=== PATIENT | female | born 1960 ===

== ENCOUNTER 2017-05-27 12:26 | Inpatient (IN) | payer BC ==
--- NOTE | 2017-05-27 13:05 | ED PDOC ---
HPI: Psych/Substance Abuse Time Seen by Provider: 05/27/17 12:40 Chief Complaint (Nursing): Psychiatric Evaluation Chief Complaint (Provider): Psychiatric Evaluation History Per: Patient History/Exam Limitations: no limitations Additional Complaint(s): Crystal Darden is a 56 year old female that was brought to ED via EMS after her family was concerned and called 911. Patient is recently from of 35 years and she has been extremely upset. Their anniversary is tomorrow, and her family is worried for her, but patient states that she wants her family to "leave her alone" so she can deal with recent change in life. She reports that she has an appointment scheduled on 06/05 with a therapist, states that she has never been on any antidepressants and has never has any suicidal attempts or thoughts or homicidal ideation. Past Medical History Reviewed: Historical Data, Nursing Documentation, Vital Signs Vital Signs: Last Vital Signs Temp 98.1 F 05/27/17 12:28 Pulse 140 H 05/27/17 12:28 Resp 16 05/27/17 12:28 BP 143/96 H 05/27/17 12:28 Pulse Ox 98 05/27/17 12:28 - Medical History PMH: Diabetes (takes insulin) Other PMH: hx of stage 2 lung cancer, now in remission - Family History Family History: States: Unknown Family Hx - Allergies Allergies/Adverse Reactions: Allergies Allergy/AdvReac Type Severity Reaction Status Date / Time naproxen Allergy ANAPHYLAXIS Verified 05/27/17 12:29 Review of Systems Psych: Negative for: Suicidal ideation (denies suicidal ideation or homicidal ideation ) Physical Exam - Reviewed Nursing Documentation Reviewed: Yes Vital Signs Reviewed: Yes - Physical Exam Appears: Positive for: Non-toxic, No Acute Distress Head Exam: Positive for: ATRAUMATIC, NORMOCEPHALIC Skin: Positive for: Normal Color, Warm Eye Exam: Positive for: EOMI, Normal appearance, PERRL Cardiovascular/Chest: Positive for: Regular Rate, Rhythm. Negative for: Murmur Respiratory: Positive for: Normal Breath Sounds. Negative for: Wheezing Gastrointestinal/Abdominal: Positive for: Normal Exam, Soft. Negative for: Tenderness Extremity: Positive for: Normal ROM. Negative for: Tenderness, Swelling Neurologic/Psych: Positive for: Alert, Oriented. Negative for: Motor/Sensory Deficits - Laboratory Results Result Diagrams: 05/27/17 14:30 10/15/17 14:30 - ECG O2 Sat by Pulse Oximetry: 98 (RA) Pulse Ox Interpretation: Normal - Progress ED Course And Treament: PATIENT AGITATED IN ED. ATIVAN 1 MG IM X 1 DOSE EKG: SINUS TACHYCARDIA 118BPM. NO ECTOPY; NO ACUTE CHANGES POTASSIUM NOTED 3.4 KDUR 40 MEQ X 1 DOSE NS 1 LITER WIDE OPEN UTI NOTED. CIPRO 500MG X 1 DOSE ORDERED. CXR: NAD REPEAT HEART RATE 110. PATIENT UPSET HER PHONE IS NOT ACCESSIBLE AND IS LOCKED UP. CLEARED MEDICALLY FOR PSYCHIATRIC EVALUATION AND HOSPITALIZATION Medical Decision Making Medical Decision Making: Impression: Depression Plan: * Psychiatric Evaluation * Reevaluation 14:15 Patient was evaluated by crisis, determined to need psychiatric admission. Patient voluntarily signed for admission. Scribe Attestation: Documented by Angle Swift, acting as a scribe for Usman Stanford PA-C. Provider Scribe Attestation: All medical record entries made by the Scribe were at my direction and personally dictated by me. I have reviewed the chart and agree that the record accurately reflects my personal performance of the history, physical exam, medical decision making, and the department course for this patient. I have also personally directed, reviewed, and agree with the discharge instructions and disposition. Disposition - Clinical Impression Clinical Impression: Depression, UTI (urinary tract infection) - Patient ED Disposition Is Patient to be Admitted: Yes - Disposition Disposition Time: 19:49 Condition: FAIR - Pt Status Changed To: Hospital Disposition Of: Inpatient - Admit Certification Admit to Inpatient:: After my assessment, the patient will require hospitalization for at least two midnights. This is because of the severity of symptoms shown, intensity of services needed, and/or the medical risk in this patient being treated as an outpatient.
[2017-05-27 15:15] LABS: BASO % 0.3 % (0.0-2.0); EOS # 0.1 K/uL (0.0-0.7); EOS % 0.6 % (0.0-4.0); LYMPH # 2.4 K/uL (1.0-4.3); LYMPH % 24.6 % (20.0-40.0); MEAN CELL VOLUME 88.4 fl (81.0-99.0); MEAN CORPUSCULAR HEMOGLOBIN 29.9 pg (27.0-31.0); MEAN CORPUSCULAR HGB CONC 33.8 g/dL (33.0-37.0); MONO # 0.5 K/uL (0.0-0.8); MONO % 5.4 % (0.0-10.0); NEUT # 6.7 K/uL (1.8-7.0); NEUT % 69.1 % (50.0-75.0); NRBC % 0.2 % (0.0-0.0); RED CELL DISTRIBUTION WIDTH 12.8 % (11.5-14.5); WHITE BLOOD COUNT 9.7 K/uL (4.8-10.8)
[2017-05-27 15:25] LABS: ALB/GLOB RATIO 1.5 (1.0-2.1); ALCOHOL SERUM 65 mg/dl (0-10); ALKALINE PHOSPHATASE 84 U/L (38-126); ALT/SGPT 42 U/L (9-52); AST/SGOT 21 U/L (14-36); BILIRUBIN,TOTAL 0.3 mg/dl (0.2-1.3); BLOOD UREA NITROGEN 15 mg/dl (7-17); CALCIUM 9.6 mg/dL (8.4-10.2); CARBON DIOXIDE 18 mmol/L (22-30); CHLORIDE 104 mmol/L (98-107); GFR AFRICAN-AMERICAN > 60; GLUCOSE,RANDOM 260 mg/dL (65-105); POTASSIUM 3.4 MMOL/L (3.6-5.0); SODIUM 142 mmol/l (132-148); TOTAL PROTEIN 7.7 G/DL (6.3-8.2)
[2017-05-27] MEDS ORDERED: Sodium Chloride 0.9% 1,000 ML IV STA ×2 (17:09→17:13)
[2017-05-27] MEDS ORDERED: Potassium Chloride 20 mEq ER Tab PO STA (17:13)
[2017-05-27] MEDS ORDERED: Potassium Chloride 20 mEq ER Tab PO ONE (17:17)
[2017-05-27 19:20] LABS: RBC URINE 8 /hpf (0-3); URINE BACTERIA RARE (<OCC); URINE BILIRUBIN NEGATIVE (NEGATIVE); URINE BLOOD NEGATIVE (NEGATIVE); URINE COLOR YELLOW (YELLOW); URINE GLUCOSE (UA) >=500 mg/dL (Normal); URINE KETONE TRACE mg/dL (NEGATIVE); URINE LEUKOCYTE ESTERASE MOD Leu/uL (Negative); URINE PROTEIN 100 mg/dL (NEGATIVE); URINE UROBILINOGEN 0.2-1.0 mg/dL (0.2-1.0); WBC URINE 18 /hpf (0-5)
[2017-05-27 19:47] VITALS: O2SAT 98
[2017-05-27] MEDS ORDERED: Magnesium Hydroxide Susp 30 ml UD PO PRN (21:25)
[2017-05-27] MEDS ORDERED: Alum-Mag Hydrox-Simethicone Susp (30 mL) PO PRN (21:25)
[2017-05-27] MEDS ORDERED: DiphenhydrAMINE 50 mg/ml Inj IM PRN (21:25)
--- NOTE | 2017-05-27 21:48 | PCM.BM ---
Treatment Plan Problems - Problems identified on initial assessmt Hopelessnss/Helplessness Date Initiated: 05/27/17 Time Initiated: 21:46 Assessment reference: NA Status: Active Feelings of Worthlessness Date Initiated: 05/27/17 Time Initiated: 21:47 Assessment reference: NA Status: Active Treatment assets and liabiliti Patient Assests: cooperative, ADL independent, good support system, negotiates basic needs Patient Liabilities: relationship conflicts - Milieu Protocol Maintain good personal hygiene: daily Encourage regular showers, every shift Remind patient to perform daily oral care Conduct patient checks and document Observation sheet: Q15 minutes Maintain personal safety: every shift Educate patient to report safety concerns to staff, every shift Monitor environment for contraband/sharps Medication safety: Monitor for expected outcome, potential side effects: every shift, Assess barriers to learning: every shift, Assess readiness for medication education: daily
[2017-05-28 07:01] LABS: BLOOD UREA NITROGEN 14 mg/dl (7-17); CARBON DIOXIDE 27 mmol/L (22-30); CHLORIDE 105 mmol/L (98-107); CHOLESTEROL 231 mg/dL (0-199); GFR AFRICAN-AMERICAN > 60; GLUCOSE,RANDOM 224 mg/dL (65-105); POTASSIUM 4.1 MMOL/L (3.6-5.0); SODIUM 142 mmol/l (132-148)
[2017-05-28 07:05] LABS: T4 9.22 ug/dl (5.5-11.0)
[2017-05-28 07:18] LABS: THYROID STIMULATING HORMONE 0.68 mIU/ML (0.46-4.68)
--- NOTE | 2017-05-28 07:32 | RAD ---
PROCEDURE: CHEST RADIOGRAPH, 1 VIEW HISTORY: ROUTINE COMPARISON: None available. FINDINGS: LUNGS: No acute infiltrate is identified bilaterally. Left hemidiaphragm appears elevated, etiology indeterminate. PLEURA: No pneumothorax or pleural fluid seen. CARDIOVASCULAR: Normal. OSSEOUS STRUCTURES: No significant abnormalities. VISUALIZED UPPER ABDOMEN: Normal. OTHER FINDINGS: None. IMPRESSION: Elevated left hemidiaphragm from an indeterminate etiology. No acute infiltrate pleural effusion or pneumothorax identified. Cardiac size appears normal.
[2017-05-28] MEDS: Insulin Lispro (humaLOG) 100 Units/ml Inj SC SCH ×4 (08:57→21:08)
[2017-05-28] MEDS ORDERED: Pneumococcal 23-Valent Vaccine IM ONE (09:00)
[2017-05-28 09:49] VITALS: RESP 18
--- NOTE | 2017-05-28 10:07 | CP.PCM.CON ---
<Tanya Mcfarland - Last Filed: 05/28/17 12:49> History of Present Illness - History of Present Illness History of Present Illness: 57 y/o female with PMHx of DM type II seen at bedside in psych unit after consult for medical evaluation. Pt states she was admitted to the hospital after her daughter was concerned that she might hurt herself. Pt states her recently left her so she has been sad but does not describe herself as depressed. Pt denies any history of depression and denies having suicidal or homicidal ideations. Pt states she occasionally experiences a shooting pain down her right leg, and was previously treated with Lyrica. However, pt states she was experiencing hallucinations while on Lyrica and the medication was discontinued by her doctor. Pt admits to taking Novolog TID. Pt states she did experience a mild fever and chills approx 2-3 days ago. Pt denies N/V/D/CP/SOB. PSH: tonsillectomy, ganglion cyst removal R arm, lung surgery, breast enhancement surgery, abdominal surgery ALL: Naproxen Social: "social" cigarette smoker, stress related. denies EtOH or illicit drug use. Family: currently lives alone as left her 3 weeks ago Review of Systems - Review of Systems All systems: reviewed and no additional remarkable complaints except (per HPI) Past Patient History - Infectious Disease Hx of Infectious Diseases: None - Past Social History Smoking Status: Light Smoker < 10 Cigarettes Daily - CARDIAC Hx Cardiac Disorders: No - PULMONARY Hx Lung Cancer: Yes (w/ Chemo in 2010) - NEUROLOGICAL HX Cerebrovascular Accident: No Hx Seizures: No - HEENT Hx HEENT Problems: No - RENAL Hx Chronic Kidney Disease: No - ENDOCRINE/METABOLIC Hx Diabetes Mellitus Type 2: Yes - HEMATOLOGICAL/ONCOLOGICAL Hx Blood Disorders: Yes Hx Cancer: Yes (PT HAD STAGE 2 LUNG CANCER) Hx Human Immunodeficiency Virus (HIV): No - INTEGUMENTARY Hx Dermatological Problems: No - MUSCULOSKELETAL/RHEUMATOLOGICAL Hx Musculoskeletal Disorders: No - GASTROINTESTINAL Hx Gastrointestinal Disorders: No - GENITOURINARY/GYNECOLOGICAL Hx Sexually Transmitted Disorders: No - PSYCHIATRIC Hx Substance Use: No (unknown) - SURGICAL HISTORY Hx Tonsillectomy: Yes Other/Comment: Lung Sx 2010. R lymph node Sx 2006. Julio Sanchez 2006. Breast Lift 2006 - ANESTHESIA Hx Anesthesia: Yes Hx Anesthesia Reactions: No Hx Malignant Hyperthermia: No Has any member of the family had a problem w/ anesthesia?: No Meds Allergies/Adverse Reactions: Allergies Allergy/AdvReac Type Severity Reaction Status Date / Time naproxen Allergy ANAPHYLAXIS Verified 05/27/17 12:29 - Medications Medications: Current Medications Acetaminophen (Tylenol 325mg Tab) 650 mg PO Q4 PRN PRN Reason: pain level 4-7 Al Hydrox/Mg Hydrox/Simethicone (Maalox Plus 30 Ml) 30 ml PO Q4 PRN PRN Reason: Dyspepsia Ciprofloxacin (Cipro) 500 mg PO Q12 TARSHA PRN Reason: Protocol Stop: 05/30/17 09:01 Last Admin: 05/28/17 08:55 Dose: 500 mg Diphenhydramine HCl (Benadryl) 50 mg IM Q6 PRN PRN Reason: Extrapyramidal S/S Unable PO Diphenhydramine HCl (Benadryl) 50 mg PO Q6 PRN PRN Reason: Extrapyramidal Symptoms Diphenhydramine HCl (Benadryl) 50 mg PO HS PRN PRN Reason: Sleep Haloperidol (Haldol) 5 mg PO Q4 PRN PRN Reason: Agitation Haloperidol Lactate (Haldol) 5 mg IM Q4 PRN PRN Reason: Agitation, Unable to Take PO Influenza Virus Vaccine (Afluria (Pf)(18yr & Older)) 0.5 ml IM .ONCE ONE Stop: 05/29/17 09:01 Insulin Human Lispro (Humalog) 0 units SC ACHS TARSHA PRN Reason: Protocol Last Admin: 05/28/17 08:57 Dose: 2 units Lorazepam (Ativan) 2 mg IM Q4 PRN PRN Reason: Anxiety/Agitation,Unable PO Lorazepam (Ativan) 2 mg PO Q4 PRN PRN Reason: Anxiety/Agitation Magnesium Hydroxide (Milk Of Magnesia) 30 ml PO HS PRN PRN Reason: Constipation Physical Exam - Constitutional Appears: Well, Non-toxic, No Acute Distress - Head Exam Head Exam: ATRAUMATIC, NORMAL INSPECTION, NORMOCEPHALIC - Eye Exam Eye Exam: EOMI, Normal appearance, PERRL Pupil Exam: NORMAL ACCOMODATION, PERRL - ENT Exam ENT Exam: Mucous Membranes Moist, Normal Exam - Neck Exam Neck exam: Positive for: Full Rom, Normal Inspection Additional comments: non-tender, supple - Respiratory Exam Respiratory Exam: Clear to Auscultation Bilateral, NORMAL BREATHING PATTERN Additional comments: no wheezing, no rales - Cardiovascular Exam Cardiovascular Exam: REGULAR RHYTHM, +S1, +S2 Additional comments: no murmur, no gallop - GI/Abdominal Exam GI & Abdominal Exam: Normal Bowel Sounds, Soft Additional comments: non-tender - Rectal Exam Rectal Exam: Deferred - Extremities Exam Extremities exam: Positive for: normal capillary refill, normal inspection, pedal pulses present - Back Exam Back exam: NORMAL INSPECTION - Neurological Exam Neurological exam: Alert, CN II-XII Intact, Normal Gait, Oriented x3 - Psychiatric Exam Psychiatric exam: Normal Affect, Normal Mood Additional comments: no suicidal or homicidal ideations - Skin Skin Exam: Intact, Normal Color Additional comments: no lesions Results - Vital Signs Recent Vital Signs: Last Vital Signs Temp 97.3 F L 05/28/17 09:00 Pulse 98 H 05/28/17 09:00 Resp 18 05/28/17 09:00 BP 159/73 H 05/28/17 09:00 Pulse Ox 98 05/27/17 19:49 - Labs Result Diagrams: 05/27/17 14:30 05/28/17 06:00 Labs: Laboratory Results - last 24 hr 05/27/17 05/27/17 05/27/17 13:02 14:30 14:30 WBC 9.7 RBC 5.09 Hgb 15.2 Hct 45.0 MCV 88.4 MCH 29.9 MCHC 33.8 RDW 12.8 Plt Count 176 MPV 10.0 Neut % (Auto) 69.1 Lymph % (Auto) 24.6 [place] % (Auto) 5.4 Eos % (Auto) 0.6 Baso % (Auto) 0.3 Neut # 6.7 Lymph # 2.4 [place] # 0.5 Eos # 0.1 Baso # 0.0 Sodium 142 Potassium 3.4 L Chloride 104 Carbon Dioxide 18 L Anion Gap 23 H BUN 15 Creatinine 0.6 L Est GFR ( Amer) > 60 Est GFR (Non-Af Amer) > 60 POC Glucose (mg/dL) 267 H Random Glucose 260 H Calcium 9.6 Total Bilirubin 0.3 AST 21 ALT 42 Alkaline Phosphatase 84 Total Protein 7.7 Albumin 4.6 Globulin 3.1 Albumin/Globulin Ratio 1.5 Triglycerides Cholesterol LDL Cholesterol Direct HDL Cholesterol Thyroxine (T4) TSH 3rd Generation Urine Color Urine Clarity Urine pH Ur Specific [place] Urine Protein Urine Glucose (UA) Urine Ketones Urine Blood Urine Nitrate Urine Bilirubin Urine Urobilinogen Ur Leukocyte Esterase Urine RBC (Auto) Urine Microscopic WBC Ur Squamous Epith Cells Urine Bacteria Hyaline Casts Urine Opiates Screen Urine Methadone Screen Ur Barbiturates Screen Ur Phencyclidine Scrn Ur Amphetamines Screen U Benzodiazepines Scrn U Oth Cocaine Metabols U Cannabinoids Screen Alcohol, Quantitative 65 H 05/27/17 05/27/17 05/27/17 17:53 19:10 19:46 WBC RBC Hgb Hct MCV MCH MCHC RDW Plt Count MPV Neut % (Auto) Lymph % (Auto) [place] % (Auto) Eos % (Auto) Baso % (Auto) Neut # Lymph # [place] # Eos # Baso # Sodium Potassium Chloride Carbon Dioxide Anion Gap BUN Creatinine Est GFR ( Amer) Est GFR (Non-Af Amer) POC Glucose (mg/dL) 194 H Random Glucose Calcium Total Bilirubin AST ALT Alkaline Phosphatase Total Protein Albumin Globulin Albumin/Globulin Ratio Triglycerides Cholesterol LDL Cholesterol Direct HDL Cholesterol Thyroxine (T4) TSH 3rd Generation Urine Color Yellow Urine Clarity Slighty-cloudy Urine pH 5.0 Ur Specific [place] 1.033 H Urine Protein 100 Urine Glucose (UA) >=500 Urine Ketones Trace Urine Blood Negative Urine Nitrate Negative Urine Bilirubin Negative Urine Urobilinogen 0.2-1.0 Ur Leukocyte Esterase Mod Urine RBC (Auto) 8 H Urine Microscopic WBC 18 H Ur Squamous Epith Cells 3 Urine Bacteria Rare Hyaline Casts 0-2 Urine Opiates Screen Negative Urine Methadone Screen Negative Ur Barbiturates Screen Negative Ur Phencyclidine Scrn Negative Ur Amphetamines Screen Negative U Benzodiazepines Scrn Negative U Oth Cocaine Metabols Negative U Cannabinoids Screen Negative Alcohol, Quantitative 05/27/17 05/28/17 05/28/17 22:33 05:22 06:00 WBC RBC Hgb Hct MCV MCH MCHC RDW Plt Count MPV Neut % (Auto) Lymph % (Auto) [place] % (Auto) Eos % (Auto) Baso % (Auto) Neut # Lymph # [place] # Eos # Baso # Sodium 142 Potassium 4.1 Chloride 105 Carbon Dioxide 27 Anion Gap 14 BUN 14 Creatinine 0.6 L Est GFR ( Amer) > 60 Est GFR (Non-Af Amer) > 60 POC Glucose (mg/dL) 261 H 219 H Random Glucose 224 H Calcium 10.0 Total Bilirubin AST ALT Alkaline Phosphatase Total Protein Albumin Globulin Albumin/Globulin Ratio Triglycerides 236 H Cholesterol 231 H LDL Cholesterol Direct 146 H HDL Cholesterol 43 Thyroxine (T4) 9.22 TSH 3rd Generation 0.68 Urine Color Urine Clarity Urine pH Ur Specific [place] Urine Protein Urine Glucose (UA) Urine Ketones Urine Blood Urine Nitrate Urine Bilirubin Urine Urobilinogen Ur Leukocyte Esterase Urine RBC (Auto) Urine Microscopic WBC Ur Squamous Epith Cells Urine Bacteria Hyaline Casts Urine Opiates Screen Urine Methadone Screen Ur Barbiturates Screen Ur Phencyclidine Scrn Ur Amphetamines Screen U Benzodiazepines Scrn U Oth Cocaine Metabols U Cannabinoids Screen Alcohol, Quantitative Assessment & Plan (1) Depression Assessment and Plan: psych to continue medical management Status: Acute (2) UTI (urinary tract infection) Assessment and Plan: Continue Ciprofloxacin WBC currently at 9.7 F/U urine cx Status: Acute <Manav Miranda - Last Filed: 05/28/17 20:09> Meds - Medications Medications: Current Medications Acetaminophen (Tylenol 325mg Tab) 650 mg PO Q4 PRN PRN Reason: pain level 4-7 Al Hydrox/Mg Hydrox/Simethicone (Maalox Plus 30 Ml) 30 ml PO Q4 PRN PRN Reason: Dyspepsia Ciprofloxacin (Cipro) 500 mg PO Q12 TARSHA PRN Reason: Protocol Stop: 05/30/17 09:01 Last Admin: 05/28/17 08:55 Dose: 500 mg Diphenhydramine HCl (Benadryl) 50 mg IM Q6 PRN PRN Reason: Extrapyramidal S/S Unable PO Diphenhydramine HCl (Benadryl) 50 mg PO Q6 PRN PRN Reason: Extrapyramidal Symptoms Diphenhydramine HCl (Benadryl) 50 mg PO HS PRN PRN Reason: Sleep Escitalopram Oxalate (Lexapro) 5 mg PO DAILY COUNTS INCLUDE 234 BEDS AT [facility] Last Admin: 05/28/17 13:05 Dose: 5 mg Haloperidol (Haldol) 5 mg PO Q4 PRN PRN Reason: Agitation Haloperidol Lactate (Haldol) 5 mg IM Q4 PRN PRN Reason: Agitation, Unable to Take PO Influenza Virus Vaccine (Afluria (Pf)(18yr & Older)) 0.5 ml IM .ONCE ONE Stop: 05/29/17 09:01 Insulin Human Lispro (Humalog) 0 units SC ACHS TARSHA PRN Reason: Protocol Last Admin: 05/28/17 17:18 Dose: 2 units Lorazepam (Ativan) 2 mg IM Q4 PRN PRN Reason: Anxiety/Agitation,Unable PO Lorazepam (Ativan) 2 mg PO Q4 PRN PRN Reason: Anxiety/Agitation Magnesium Hydroxide (Milk Of Magnesia) 30 ml PO HS PRN PRN Reason: Constipation Results - Vital Signs Recent Vital Signs: Last Vital Signs Temp 97.5 F L 05/28/17 16:13 Pulse 98 H 05/28/17 16:13 Resp 18 05/28/17 16:13 BP 107/63 05/28/17 16:13 Pulse Ox 98 05/27/17 19:49 - Labs Result Diagrams: 05/27/17 14:30 05/28/17 06:00 Labs: Laboratory Results - last 24 hr 05/27/17 05/27/17 05/28/17 19:46 22:33 05:22 Sodium Potassium Chloride Carbon Dioxide Anion Gap BUN Creatinine Est GFR ( Amer) Est GFR (Non-Af Amer) POC Glucose (mg/dL) 194 H 261 H 219 H Random Glucose Hemoglobin A1c Calcium Triglycerides Cholesterol LDL Cholesterol Direct HDL Cholesterol Thyroxine (T4) TSH 3rd Generation RPR 05/28/17 05/28/17 05/28/17 06:00 06:00 06:00 Sodium 142 Potassium 4.1 Chloride 105 Carbon Dioxide 27 Anion Gap 14 BUN 14 Creatinine 0.6 L Est GFR ( Amer) > 60 Est GFR (Non-Af Amer) > 60 POC Glucose (mg/dL) Random Glucose 224 H Hemoglobin A1c 12.3 H Calcium 10.0 Triglycerides 236 H Cholesterol 231 H LDL Cholesterol Direct 146 H HDL Cholesterol 43 Thyroxine (T4) 9.22 TSH 3rd Generation 0.68 RPR Nonreactive 05/28/17 05/28/17 11:39 16:29 Sodium Potassium Chloride Carbon Dioxide Anion Gap BUN Creatinine Est GFR ( Amer) Est GFR (Non-Af Amer) POC Glucose (mg/dL) 210 H 244 H Random Glucose Hemoglobin A1c Calcium Triglycerides Cholesterol LDL Cholesterol Direct HDL Cholesterol Thyroxine (T4) TSH 3rd Generation RPR
--- NOTE | 2017-05-28 13:56 | PCM.PSYCH ---
Initial Psychiatric Evaluation - Initial Psychiatric Evaluation Type of Admission: Voluntary Chief Complaint (in patient's own words): my left me and i am so sad Patient's Reaction to Hospitalization: patient signed self for help History of Present Illness and Precipitating Events: pt without previous formal psychiatric diagnosis or treatment patient few years ago received marital counseling with reportedly al of sudden decided to leave her three weeks ago patient became increasingly sad depresed isolative with poor sleep and appetite, expressed passive suicidal ideations with no plan, children were concerned and brought patient to hospital no reported manic or psychotic symptoms, no reported ubstance abuse Current Medications: Active Medications Generic Name Dose Route Start Last Admin Trade Name Freq PRN Reason Stop Dose Admin Acetaminophen 650 mg 05/27/17 21:25 Tylenol 325mg Tab PO Q4 PRN pain level 4-7 Al Hydrox/Mg Hydrox/Simethicone 30 ml 05/27/17 21:25 Maalox Plus 30 Ml PO Q4 PRN Dyspepsia Ciprofloxacin 500 mg 05/28/17 09:00 05/28/17 08:55 Cipro PO 05/30/17 09:01 500 mg Q12 TARSHA Administration Protocol Diphenhydramine HCl 50 mg 05/27/17 21:25 Benadryl IM Q6 PRN Extrapyramidal S/S Unable PO Diphenhydramine HCl 50 mg 05/27/17 21:25 Benadryl PO Q6 PRN Extrapyramidal Symptoms Diphenhydramine HCl 50 mg 05/27/17 21:27 Benadryl PO HS PRN Sleep Escitalopram Oxalate 5 mg 05/28/17 13:00 05/28/17 13:05 Lexapro PO 5 mg DAILY TARSHA Administration Haloperidol 5 mg 05/27/17 21:25 Haldol PO Q4 PRN Agitation Haloperidol Lactate 5 mg 05/27/17 21:25 Haldol IM Q4 PRN Agitation, Unable to Take PO Influenza Virus Vaccine 0.5 ml 05/29/17 09:00 Afluria (Pf)(18yr & Older) IM 05/29/17 09:01 .ONCE ONE Insulin Human Lispro 0 units 05/28/17 07:30 05/28/17 12:50 Humalog SC 2 units ACHS TARSHA Administration Protocol Lorazepam 2 mg 05/27/17 21:25 Ativan IM Q4 PRN Anxiety/Agitation,Unable PO Lorazepam 2 mg 05/27/17 21:25 Ativan PO Q4 PRN Anxiety/Agitation Magnesium Hydroxide 30 ml 05/27/17 21:25 Milk Of Magnesia PO HS PRN Constipation Past Psychiatric History - Past Psychiatric History Prior Professional Help: no hx of previous treatment History of Abuse: denied History of ETOH/Drug Use: denied History of Family Illness: non reported Pertinent Medical Hx (Current Medical&Sleep Prob, Allergies): Allergies Allergy/AdvReac Type Severity Reaction Status Date / Time naproxen Allergy ANAPHYLAXIS Verified 05/27/17 12:29 Insulin Aspart, Recombinant [Novolog] 14 unit SQ TID 05/27/17 Mental Status Examination - Personal Presentation Personal Presentation: Looks stated age - Affect Affect: Depressed - Motor Activity Motor Activity: Calm - Reliability in Providing Information Reliability in Providing Information: Fair - Speech Speech: Relevant, Coherent - Mood Mood: Depressed, Anxious - Formal Thought Process Formal Thought Process: No Impairment Additional comments: denied perceptual disturbances, non elicited - Obsessions/Compulsions Obsessions: No - Cognitive Functions Orientation: Person, Place, Situation Sensorium: Alert Attention/Concentration: Attentive Estimate of Intelligence: Average Judgement: Intact, as evidence by: Good judgement Memory: Recent intact, as evidence by: Ability to recall events of the day - Risk Risk: Suicidal - Strength & Assets Inventory Strength & Assets Inventory: Family support - Limitations Additional comments: recent seperation from DSM 5 DX - DSM 5 DSM 5 Diagnosis: adjustment disorder acute with depressed mood - Recommended/Plan of Treatment Treatment Recommendations and Plan of Treatment: start lexapro for depressed mood CBT Monitor pt for psychopharmacological effects and side effect profile Discharge Plan and Discharge Criteria: patient mood stable - Smoking Cessation Smoking Cessation Initiated: No Reason for not providing: patient denied smoking
[2017-05-29 09:12] VITALS: BP 108/59; PULSE 83; TEMP 97.9
[2017-05-29] MEDS: Insulin Lispro (humaLOG) 100 Units/ml Inj SC SCH (09:19)
[2017-05-29] MEDS: Influenza Vaccine 18yr & older 0.5 ML/45 MCG SYR IM ONE ×2 (09:29→10:31)
--- NOTE | 2017-05-29 10:55 | PCM.PYCHDC ---
Mental Status Examination - Mental Status Examination Orientation: Person, Place, Situation, Time Memory: Intact Mood: Neutral Affect: Broad Speech: Appropriate Attention: WNL Concentration: WNL Association: WNL Fund of Knowledge: WNL Formal Thought Process: No Impairment Description of patient's judgement and insight: good insight and judgment Psychotic Thoughts and Behaviors: patient denied any psychotic symptoms non elicited Suicidal Ideation: No Current Homicidal Ideation?: No Discharge Summary - Discharge Note Reason for Hospitalization: pt without previous formal psychiatric diagnosis or treatment patient few years ago received marital counseling with reportedly yumiko decided to leave her three weeks ago patient became increasingly sad depresed isolative with poor sleep and appetite, expressed passive suicidal ideations with no plan, children were concerned and brought patient to hospital no reported manic or psychotic symptoms, no reported ubstance abuse Laboratory Data: Abnormal Lab Results 05/28/17 05/28/17 05/28/17 06:00 06:00 11:39 POC Glucose (mg/dL) 210 H Hemoglobin A1c 12.3 H RPR Nonreactive 05/28/17 05/28/17 05/29/17 16:29 21:01 06:36 POC Glucose (mg/dL) 244 H 262 H 247 H Hemoglobin A1c RPR Consultations:: List each consultation separately and include: 1. Reason for request. 2. Findings. 3. Follow-up Summary of Hospital Course include:: 1. Description of specific treatment plan utilized for patients during their course of treatmen. 2. Summarize the time- course for resolution of acute symptoms and/or regressed behaviors. 3. Describe issues identified and worked on during hospitalization. 4. Describe medication utilized. 5. Describe medical problems identified and treated. 6. Reassessment of suicide risk Summary of Hospital Course: pt without previous formal psychiatric diagnosis or treatment patient few years ago received marital counseling with reportedly yumiko decided to leave her three weeks ago patient became increasingly sad depresed isolative with poor sleep and appetite, expressed passive suicidal ideations with no plan, children were concerned and brought patient to hospital no reported manic or psychotic symptoms, no reported ubstance abuse patient was started on lexapro brief cbt provided patient was cooperative attended groups on discharge patient denied any suicidal or homicidal ideations denied perceptual disturbances, stable for discharge - Diagnosis (1) Adjustment disorder with depressed mood Current Visit: Yes Status: Acute (2) Adjustment disorder with depressed mood Current Visit: Yes Status: Acute - Final Diagnosis (DSM 5) Condition upon Discharge: FAIR Disposition: Trans to Other Acute Care Hosp Follow-up Treatment Plan: patient referred for outpatient treatment Prescriptions/Medication Reconciliation: Escitalopram [Lexapro] 5 mg PO DAILY 30 Days #30 tab - Antipsychotic Medications Pt discharged on 2 or more routine antipsychotic medications: No
== END 2017-05-29 14:10 | disposition home or self-care (01) | DRG 881 ==
LOC: H.ER 12:26 → H.ERHOLD 15:06 → H.PSYCH 21:22
PROVIDERS: ADMIT Psychiatry & Neurology Psychiatry; ATTEND Psychiatry & Neurology Psychiatry
PROC: GZHZZZZ Group Psychotherapy (ICD-10-PCS; principal; 2017-05-27)
DX: F43.21 Adjustment disorder with depressed mood (principal); E11.9 Type 2 diabetes mellitus without complications; N39.0 Urinary tract infection, site not specified; Z79.4 Long term (current) use of insulin; Z85.118 Personal history of other malignant neoplasm of bronchus and lung; F17.210 Nicotine dependence, cigarettes, uncomplicated